=== PATIENT | male | born 1940 | race Asian ===

== ENCOUNTER 2016-10-08 18:20 | Emergency (ER) | payer BC ==
[2016-10-08 19:06] VITALS: BP 111/68
--- NOTE | 2016-10-08 19:13 | UC ---
Palpitation/Dysrhythmia HP - HPI Summary HPI Summary: 76 YO MALE DID NOT FEEL WELL TODAY DRIVING HOME FROM WORK VISION BLURRY NO EVANS GETS DAILY CHEST PRESSURE AND HAD SOME TODAY GOT HOME AND CHECKED BP AND IT WAS LOW AND PULSE 140 RECHECKED IT AND IT WAS NOT REGISTERED AND PULSE WAS 155 DENIES WEAKNESS DENIES DIZZINESS CURRENTLY FEELS BETTER - History of Current Complaint Chief Complaint: UCCardiac Stated Complaint: BLOOD PRESSURE/BLURRY VISION Time Seen by Provider: 10/08/16 18:43 Hx Obtained From: Patient Onset/Duration: Sudden Onset, Lasting Hours Timing: Constant Severity Initially: Mild Severity Currently: None Pain Intensity: 0 Pain Scale Used: 0-10 Numeric Character: Fast Aggravating Factor(s): Nothing Alleviating Factor(s): Nothing - SPONTANEOUSLY RESOLVED Associated Signs & Symptoms: Positive: Negative - Allergy/Home Medications Allergies/Adverse Reactions: Allergies Allergy/AdvReac Type Severity Reaction Status Date / Time Rofecoxib [From Vioxx] Allergy Rash Verified 10/08/16 18:42 Home Medications: Home Medications Aspirin Low Dose CHEW TAB* [Aspirin Low Dose TAB*] 81 mg PO DAILY 10/08/16 [ History Confirmed 10/08/16] PMH/Surg Hx/FS Hx/Imm Hx Previously Healthy: Yes - Surgical History Surgical History: Yes Surgery Procedure, Year, and Place: RIGHT EYE CATARACT- [facility]. COLONOSCOPY - Family History Known Family History: Positive: Cardiac Disease, Hypertension - Social History Alcohol Use: None Substance Use Type: None Smoking Status (MU): Never Smoked Tobacco Review of Systems Constitutional: Negative Skin: Negative Eyes: Negative ENT: Negative Respiratory: Negative Cardiovascular: Other - DID NOT APPRECIATE ANY PALPITATIONS Gastrointestinal: Negative Genitourinary: Negative Motor: Negative Neurovascular: Negative Musculoskeletal: Negative Neurological: Negative Psychological: Negative All Other Systems Reviewed And Are Negative: Yes Physical Exam Triage Information Reviewed: Yes Appearance: Well-Appearing, No Pain Distress, Well-Nourished Vital Signs: Initial Vital Signs Temp 98.4 F 10/08/16 18:30 Pulse 101 10/08/16 18:30 Resp 14 10/08/16 18:30 BP 115/72 10/08/16 18:30 Pulse Ox 100 10/08/16 18:30 Vital Signs Reviewed: Yes Eyes: Positive: Conjunctiva Clear ENT: Negative: Hearing grossly normal, Nasal congestion, Nasal drainage, Trismus , Muffled/hoarse voice Neck: Positive: Supple, Nontender, No Lymphadenopathy Respiratory: Positive: Lungs clear, Normal breath sounds, No respiratory distress, No accessory muscle use Cardiovascular: Positive: RRR, No Murmur Abdomen Description: Positive: Nontender, No Organomegaly, Soft Bowel Sounds: Positive: Present Musculoskeletal: Positive: Strength Intact, ROM Intact, No Edema Neurological: Positive: Alert Psychological Exam: Normal Diagnostics - EKG Cardiac Rate: NL Cardiac Rhythm: Sinus: Normal Ectopy: None ST Segment: Normal Palpitations Course/Dx - Course Course Of Treatment: PATIENT REFUSED TO SIGN AMA. TO ER VIA POV. D/W DR. KINNEY ([facility]) - Differential Dx/Diagnosis Provider Diagnoses: TACHYARRYTHMIA (BY HISTORY) Discharge - Discharge Plan Condition: Guarded Disposition: AGAINST MEDICAL ADVICE Patient Education Materials: Tachycardia (ED) Referrals: Kervin Jacobson DO [Primary Care Provider] - 1 Day Additional Instructions: DISCUSSED : A PULSE RATE OF OVER 150 IS ABNORMAL THE MOST PRUDENT THING FOR YOU TO DO IS TO GO TO THE EMERGENCY ROOM FOR FURTHER MONITORING AND INVESTIGATION YOU LOOK AND FEEL FINE NOW BUT YOUR CONDITION COULD CHANGE WITHOUT WARNING CERTAINLY IF YOU DEVELOP NEW OR WORSENING SYMPTOMS GO TO THE ER SEE YOUR MD TOMORROW
== END 2016-10-08 19:22 | disposition left against medical advice (07) ==
LOC: UCCORT 18:20
DX: R00.0 Tachycardia, unspecified (principal)
CPT/HCPCS: 93005; 99212; G0463